=== PATIENT | male | born 1995 | race Hispanic/Latino ===

== ENCOUNTER → 2022-07-26 | Outpatient (CLI) | payer OTHER ==
[~2022-07-26] MED LIST: ISOVUE-300 61% 100ML VIAL ONE; LIDOCAINE 1% MDV 20ML VIAL ONE; PROHANCE 279.3MG/ML 5ML VIAL ONE
== END ==
LOC: M PLAIMG 11:18
PROVIDERS: ATTEND Physician Assistant
DX: S42.292A Other displaced fracture of upper end of left humerus, initial encounter for closed fracture (principal); X58.XXXA Exposure to other specified factors, initial encounter; Y92.9 Unspecified place or not applicable
CPT/HCPCS: 23350; 73223; 77002; A9576

== ENCOUNTER 2023-07-27 11:27 | Day surgery (SDC) | payer OTHER ==
[~2023-07-27] VITALS: Ht 162.6 cm; Wt 73.7 kg
[~2023-07-27 11:27] MED LIST changes: -ISOVUE-300 61% 100ML VIAL ONE; -LIDOCAINE 1% MDV 20ML VIAL ONE; -PROHANCE 279.3MG/ML 5ML VIAL ONE; +TRANEXAMIC ACID 100 MG/ML 10ML VIAL IV ONE
[2023-07-27] MEDS ORDERED: LR 1,000 ML IV SCH ×2 (11:40→19:20)
[2023-07-27] MEDS ORDERED: ROPIvacaine 0.5% 30ML VIAL PN ONE (14:40)
[2023-07-27] MEDS ORDERED: LIDOCAINE 1% SDV 5ML VIAL PN ONE (14:40)
[2023-07-27] MEDS ORDERED: EPINEPHrine INJ 1 MG/ML 1ML AMP PN ONE (14:40)
[2023-07-27] MEDS ORDERED: fentaNYL 100 MCG/2 ML INJECTION IV PRN ×2 (14:40→19:20)
[2023-07-27] MEDS ORDERED: ceFAZolin SOD 2 GM in IV 1 EA IV ONE (14:40)
[2023-07-27] MEDS: MIDAZOLAM INJ 2MG/2ML VIAL IV PRN (14:52)
[2023-07-27] MEDS ORDERED: TRANEXAMIC ACID 100 MG/ML 10ML VIAL As Ordered ONE (16:52)
[2023-07-27] MEDS ORDERED: EPINEPHrine INJ 1 MG/ML 1ML AMP As Ordered ONE ×2 (16:52→18:13)
[2023-07-27] MEDS ORDERED: propofoL 200 MG/20 ML VIAL As Ordered ONE (16:54)
[2023-07-27] MEDS ORDERED: fentaNYL 100 MCG/2 ML INJECTION As Ordered ONE (16:55)
[2023-07-27] MEDS ORDERED: ROCURONIUM BROMIDE 50MG/5ML VIAL As Ordered ONE (16:55)
[2023-07-27] MEDS ORDERED: LIDOCAINE 2% 100MG/5ML SDV (FOR ANES.) As Ordered ONE (16:55)
[2023-07-27] MEDS ORDERED: ACETAMINOPHEN 1000MG 100ML IV BAG As Ordered ONE (16:55)
[2023-07-27] MEDS ORDERED: SUGAMMADEX SODIUM 500 MG/5 ML VIAL (BRIDION) As Ordered ONE (16:55)
[2023-07-27] MEDS ORDERED: KETOROLAC 60MG 2ML VIAL As Ordered ONE (16:55)
[2023-07-27] MEDS ORDERED: ONDANSETRON 4MG 2ML VIAL As Ordered ONE (16:55)
[2023-07-27] MEDS ORDERED: GLYCOPYRROLATE INJ 0.2 MG/ML 2 ML VIAL As Ordered ONE (17:48)
[2023-07-27] MEDS ORDERED: HYDROMORPHONE HCL 0.5 MG/ 0.5 ML SYRINGE IV PRN (19:20)
[2023-07-27] MEDS ORDERED: MEPERIDINE 25 MG/ML 1ML VIAL IV PRN (19:20)
[2023-07-27] MEDS ORDERED: diphenhydrAMINE 50MG/ML VIAL IV PRN (19:20)
[2023-07-27] MEDS ORDERED: METOCLOPRAMIDE INJ 10MG/2ML VIAL IV PRN (19:20)
[2023-07-27] MEDS ORDERED: ONDANSETRON 4MG 2ML VIAL IV PRN (19:20)
[2023-07-27] MEDS ORDERED: oxyCODONE 5MG TAB PO PRN (19:20)
[2023-07-27 20:33] VITALS: BP 138/77; TEMP 97.2; O2SAT 98
== END 2023-07-27 20:43 | disposition home or self-care (01) ==
LOC: M SDC 11:27
PROVIDERS: ATTEND Orthopaedic Surgery
DX: S43.431A Superior glenoid labrum lesion of right shoulder, initial encounter (principal); M25.511 Pain in right shoulder; X58.XXXA Exposure to other specified factors, initial encounter; Y92.89 Other specified places as the place of occurrence of the external cause; Y93.9 Activity, unspecified; Y99.1 Military activity; Z87.891 Personal history of nicotine dependence; Z88.0 Allergy status to penicillin
CPT/HCPCS: 29806; 64415; C1713; J0131; J0171; J0690; J1100; J1885; J2250; J2405; J2795; J3010